=== PATIENT | female | born 1960 | race Caucasian/White ===

== ENCOUNTER 2018-04-10 13:01 | Emergency (ER) | payer BC, OTHER ==
--- NOTE | 2018-04-10 14:09 | RAD ---
5 VIEWS RIGHT KNEE: Date: 04/10/18 HISTORY: Patient slipped and fell, injured right knee. Physical exam suggests patella is fractured. FINDINGS: There is a comminuted fracture involving the mid portion of the patella with distraction of the fract ure fragments and mild displacement and separation of additional fracture fragments. There is overlyi ng subcutaneous soft tissue swelling. No additional fracture is seen and there is no dislocation. IMPRESSION: Comminuted and displaced fracture of patella with distraction of the larger fracture fragments. POS: [facility]
== END 2018-04-10 17:28 | disposition home or self-care (01) ==
LOC: ERS 13:01
DX: S82.041A Displaced comminuted fracture of right patella, initial encounter for closed fracture (principal); Z85.048 Personal history of other malignant neoplasm of rectum, rectosigmoid junction, and anus; Z85.038 Personal history of other malignant neoplasm of large intestine; X50.0XXA Overexertion from strenuous movement or load, initial encounter

== ENCOUNTER 2018-04-17 12:16 | Day surgery (SDC) | payer OTHER ==
[2018-04-13 11:17] VITALS: BMI 22.7
[~2018-04-17 12:16] MED LIST: Bupivacaine HCl 0.5%/Epinephrine 1:200,000/PF 30 ml Vial ONE; Ketorolac Tromethamine 30 MG/ML VIAL ONE; Lidocaine 1% PF 5 ML VIAL ONE; Ondansetron HCl/PF 4 MG/2 ML Vial ONE; PROPOFOL 200 MG/20 ML VIAL ONE
[2018-04-17] MEDS ORDERED: CEFAZOLIN/Water 2 GM/20 ML SYRINGE ONE (12:39)
[2018-04-17] MEDS ORDERED: Fentanyl 100 MCG/2 ML VIAL ONE ×3 (13:14→17:13)
[2018-04-17] MEDS ORDERED: Midazolam HCl 2 mg/2 ml Vial ONE (13:14)
[2018-04-17] MEDS ORDERED: HYDROcodone/Acetaminophen 10/325 mg Tablet PO PRN ×2 (13:52)
[2018-04-17] MEDS ORDERED: Ketorolac Tromethamine 30 MG/ML VIAL IVP PRN (13:52)
[2018-04-17] MEDS ORDERED: Ropivacaine HCl/PF 1,100 MG in Premix Bag 1 BAG NERVE BLCK SCH (13:52)
[2018-04-17] MEDS ORDERED: Zolpidem Tartrate 5 MG TAB PO PRN (13:52)
[2018-04-17] MEDS ORDERED: traMADol HCl 50 MG TAB PO PRN ×2 (13:52)
[2018-04-17] MEDS ORDERED: Promethazine HCl 25 MG/ML VIAL IM PRN (13:52)
[2018-04-17] MEDS ORDERED: Ondansetron HCl/PF 4 MG/2 ML Vial IVP PRN (13:52)
[2018-04-17] MEDS ORDERED: Fentanyl 100 MCG/2 ML VIAL IV PRN (13:53)
--- NOTE | 2018-04-17 17:53 | RAD ---
INTRAOPERATIVE IMAGING OF THE RIGHT KNEE 04/17/18 COMPARISON: None. HISTORY: ORIF patellar fracture. FINDINGS: Right knee frontal and lateral radiograph obtained intraoperatively demonstrates postoperative gas an d soft tissue irregularity along the anterior aspect of the knee in the region of the patella treatin g a patellar fracture. The patella is difficult to visualize on the lateral examination and may be pa rtially surgically absent. Postoperative imaging may be beneficial. IMPRESSION: Intraoperative imaging as above. POS: [facility]
[2018-04-17] MEDS ORDERED: HYDROcodone/Acetaminophen 5/325 mg Tablet ONE (18:26)
--- NOTE | 2018-04-18 10:50 | OP ---
DATE OF SURGERY: 04/17/2018 PREOPERATIVE DIAGNOSIS: Comminuted patellar fracture, right. POSTOPERATIVE DIAGNOSIS: Comminuted patellar fracture, right. SURGICAL PROCEDURE: Inferior pole patellectomy with repair of the patellar tendon. ANESTHESIA: General. SURGEON: Gomez Garcia M.D. ACCOUNT REVIEW SPECIALIST: Carlos Alberto Malhotra PA-C. TOURNIQUET TIME: 53 minutes at 300 mmHg. COMPLICATIONS: None. DRAINS: None. SPECIMEN: None. OUTCOME: Satisfactory. INDICATIONS: The patient is a 57-year-old lady, who sustained a fall on right knee with severely com minuted patellar fracture. The overlying skin is intact, and after discussion with patient including risks and benefits, we have decided to proceed with an attempted open reduction internal fixation ve rsus inferior pole patellectomy with advancement of patellar tendon. Informed consent has been obtai kristen. I believe all questions have been answered. PROCEDURE IN DETAIL: After the induction, patient was brought to the operating room and a timeout pe rformed followed by the induction of general anesthesia. Next, patient was positioned supine on the OR table, and a sterile prep and drape was performed of the right lower extremity. The limb was then exsanguinated with Esmarch bandage, tourniquet inflated to 300 mmHg. Next, a midline anterior knee incision was made after skin was sharply incised, dissection was carried down to the underlying perit enon of the patellar tendon and the prepatellar bursa. This structure was incised in line and then t he peritenon reflected medially and laterally. At this point, we could also see tears extending into both medial and lateral retinaculum. Next, the inferior pole was inspected. There was found to be both coronal and sagittal fracture lines with at least 5 fragments incorporating the inferior pole. 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 As such, after this inspection, it was decided to proceed with an inferior pole patellectomy, retaining the entire patellar tendon as well as a sleeve of periosteum . The inferior pole was excised in its entirety. Next, #5 Ethibond suture was woven in a Krackow-ty pe stitch along both the left and right borders of the patellar tendon. Next, 3 drill holes were pas sed through the superior pole of the patella and then the sutures were passed through these drill hol es out through the superior pole of the patella. Tying these sutures over the superior pole allowed for excellent approximation of the patellar tendon against the cancellous bone surface of the superio r pole. Once completed, a #1 Ethibond was used to repair the retinaculum medially and laterally, fol lowed by 0 Vicryl for the peritenon, 2-0 Vicryl subcutaneously, and nicolas for the skin. A Xeroform gauze, Kerlix roll, Bay wrap dressing was applied to the knee, and then the knee was placed in a kne e immobilizer. Tourniquet was let down at the completion of dressing, and then patient was transferr ed to recovery room in stable condition. There were no complications, and the patient tolerated the procedure well.
== END 2018-04-17 19:21 | disposition home or self-care (01) ==
LOC: SDC 12:16
PROVIDERS: ATTEND Orthopaedic Surgery
PROC: 0QBD0ZZ Excision of Right Patella, Open Approach (ICD-10-PCS; principal; 2018-04-17)
DX: S82.041A Displaced comminuted fracture of right patella, initial encounter for closed fracture (principal); Z85.048 Personal history of other malignant neoplasm of rectum, rectosigmoid junction, and anus; Z87.891 Personal history of nicotine dependence; Z79.899 Other long term (current) drug therapy; W01.0XXA Fall on same level from slipping, tripping and stumbling without subsequent striking against object, initial encounter
CPT/HCPCS: 76001; 96374; J0670; J1885; J2001; J2250; J2405; J2704; J2795; J3010